=== PATIENT | male | born 1950 | race Caucasian/White ===

== ENCOUNTER 2022-09-13 10:20 | Outpatient (CLI) | payer MEDICARE ==
[2022-09-13] MEDS ORDERED: Magnevist 469MG/ML 20 ML VIAL ONE (17:03)
== END 2022-09-13 10:21 | disposition home or self-care (01) ==
LOC: CSHMRI 10:20
PROVIDERS: ATTEND Urology
DX: R97.20 Elevated prostate specific antigen [PSA] (principal)
CPT/HCPCS: 72197; 82565; A9579